=== PATIENT | male | born 1955 | race Caucasian/White ===

== ENCOUNTER 2023-11-20 01:45 | Emergency (ER) | payer MEDICARE ==
[~2023-11-20] VITALS: Ht 182.9 cm; Wt 136.1 kg
[~2023-11-20 01:45] MED LIST: CEFDINIR300 MG PO; CIPRO500 MG PO; DICYCLOMINE HCL20 MG PO; ONDANSETRON ODT4 MG PO; Z.0.LEVOTHROID50 MCG PO; Z.0.LIPITOR20 MG PO; Z.0.LISINOPRIL40 MG PO; Z.0.SIMVASTATIN20 MG PO; Z.0.ZIPSOR25 MG PO
[2023-11-20 01:55] VITALS: PULSE 73; RESP 20; TEMP 97.8; O2SAT 98
[2023-11-20] MEDS ORDERED: CEPHALEXIN500 MG PO (02:10)
[2023-11-20] MEDS ORDERED: ULTRAM 50MG50 MG PO (02:13)
[2023-11-20] MEDS: TETANUS/DIPHTHERIA TOX ADULT 0.5 ML SYR IM ONE (02:14)
== END 2023-11-20 02:21 | disposition home or self-care (01) ==
LOC: ER 01:50
DX: S81.811A Laceration without foreign body, right lower leg, initial encounter (principal); S90.414A Abrasion, right lesser toe(s), initial encounter; W20.8XXA Other cause of strike by thrown, projected or falling object, initial encounter; Y92.89 Other specified places as the place of occurrence of the external cause; I10 Essential (primary) hypertension; E03.9 Hypothyroidism, unspecified; I25.10 Atherosclerotic heart disease of native coronary artery without angina pectoris
CPT/HCPCS: 90471; 90714; 99284

== ENCOUNTER 2023-12-20 09:56 | Outpatient (RCR) | payer MEDICARE ==
[2023-11-30 16:55] LABS: BASOPHILS # (AUTO) 0.1 (0.0-0.1); EOSINOPHILS # (AUTO) 0.1 (0.0-0.4); EOSINOPHILS % 1.3 % (0.0-6.0); HEMATOCRIT 50.1 % (38.2-49.6); HEMOGLOBIN 16.5 g/dL (14.0-18.0); LYMPHOCYTES # (AUTO) 1.9 (1.0-3.2); LYMPHOCYTES % 18.7 % (18.0-39.1); MEAN CORPUSCULAR HGB CONC 32.9 g/dL (31-35); MEAN CORPUSCULAR VOLUME 103.1 fL (81-99); MONOCYTES # (AUTO) 0.9 (0.2-0.8); MONOCYTES % 9.4 % (4.4-11.3); NEUTROPHILS # (AUTO) 6.8 (2.1-6.9); NEUTROPHILS % 69.1 % (38.7-80.0); PLATELET COUNT 235 x10e3/uL (140-360); RED BLOOD COUNT 4.86 x10e6/uL (4.3-5.7); WHITE BLOOD COUNT 9.87 x10e3/uL (4.8-10.8)
[2023-11-30 17:10] LABS: ALBUMIN 3.6 g/dL (3.5-5.0); ALBUMIN/GLOBULIN RATIO 1.2 (0.8-2.0); ANION GAP 15.2 mmol/L (8-16); BILIRUBIN,TOTAL 0.7 mg/dL (0.2-1.2); CALCIUM 9.4 mg/dL (8.4-10.2); CREATININE, SERUM 1.13 mg/dL (0.72-1.25); POTASSIUM 4.2 mmol/L (3.5-5.1); TOTAL PROTEIN 6.5 g/dL (6.5-8.1)
[~2023-12-20 09:56] MED LIST changes: +CEPHALEXIN500 MG PO; +LIDOCAINE/PRILOCAINE 2.5-2.5% KIT ONE; +MINERAL OIL/PETROLAT/GLYCERI 6OZ BTL ONE; +ULTRAM 50MG50 MG PO
== END 2023-12-22 ==
LOC: WCC 09:56
PROVIDERS: ATTEND Nurse Practitioner Family
DX: S81.811D Laceration without foreign body, right lower leg, subsequent encounter (principal)
CPT/HCPCS: 36415; 80053; 84134; 85025

== ENCOUNTER 2023-12-27 11:59 | Inpatient (IN) | payer MEDICARE ==
[~2023-12-27] VITALS: Ht 182.9 cm; Wt 138.3 kg
[~2023-12-27 11:59] MED LIST changes: -LIDOCAINE/PRILOCAINE 2.5-2.5% KIT ONE; -MINERAL OIL/PETROLAT/GLYCERI 6OZ BTL ONE
[2023-12-27 13:08] VITALS: TEMP 98.4
[2023-12-27 13:59] LABS: BASOPHILS # (AUTO) 0.1 (0.0-0.1); BASOPHILS % 0.8 % (0.0-1.0); EOSINOPHILS % 0.1 % (0.0-6.0); LYMPHOCYTES # (AUTO) 0.6 (1.0-3.2); LYMPHOCYTES % 5.6 % (18.0-39.1); MEAN CORPUSCULAR HEMOGLOBIN 34.8 pg (28-32); MEAN CORPUSCULAR HGB CONC 33.3 g/dL (31-35); MEAN CORPUSCULAR VOLUME 104.5 fL (81-99); MONOCYTES # (AUTO) 0.6 (0.2-0.8); MONOCYTES % 5.8 % (4.4-11.3); NEUTROPHILS # (AUTO) 8.9 (2.1-6.9); PLATELET COUNT 126 x10e3/uL (140-360); RED BLOOD COUNT 4.88 x10e6/uL (4.3-5.7); RED CELL DISTRIBUTION WIDTH 12.5 % (11.7-14.4); WHITE BLOOD COUNT 10.26 x10e3/uL (4.8-10.8)
[2023-12-27 14:35] LABS: ALBUMIN 3.3 g/dL (3.5-5.0); ANION GAP 16.9 mmol/L (8-16); BILIRUBIN,TOTAL 1.3 mg/dL (0.2-1.2); CALCIUM 9.5 mg/dL (8.4-10.2); CREATININE, SERUM 1.45 mg/dL (0.72-1.25); POTASSIUM 4.9 mmol/L (3.5-5.1); TOTAL PROTEIN 6.7 g/dL (6.5-8.1)
[2023-12-27] MEDS ORDERED: SODIUM CHLORIDE FLUSH 10 ML SYR INJ PRN (16:45)
[2023-12-27] MEDS: Morphine 2mg Syringe 2 MG/ML SYR IV PRN (17:17)
[2023-12-27] MEDS: ONDANSETRON HCL INJ 2MG/ML 2ML 2 MG/ML VIAL IV PRN (17:17)
[2023-12-27 17:37] VITALS: PULSE 89; RESP 18
[2023-12-27 20:00] VITALS: BP 187/93; PULSE 96; RESP 20; TEMP 100.8; O2SAT 98
[2023-12-27] MEDS: HYDROCODONE/APAP 10MG-325MG TAB PO PRN (22:15)
[2023-12-27] MEDS: ACETAMINOPHEN 325 MG TAB PO PRN (22:16)
[2023-12-27] MEDS: SODIUM CHLORIDE 0.9% 1000ML 1,000 ML IV SCH (22:57)
[2023-12-28] VITALS (10 sets, daily range): BP systolic 120–187; BP diastolic 66–104; PULSE 89–109; RESP 20–22; TEMP 97.8–99.1; O2SAT 96–99
[2023-12-28 02:51] LABS: BILIRUBIN,URINE MODERATE (NEGATIVE); CLARITY,URINE CLEAR (CLEAR); COLOR,URINE YELLOW (YELLOW); GLUCOSE, URINE NEGATIVE (NEGATIVE); KETONES,URINE 2+ (NEGATIVE); LEUKOCYTE ESTERASE ,URINE NEGATIVE (NEGATIVE); NITRITE,URINE NEGATIVE (NEGATIVE); PH,URINE 5.5 (5 - 7); PROTEIN,URINE DIPSTICK 2+ (NEGATIVE); URINE UROBILINOGEN 0.2 mg/dL (0.2 - 1)
[2023-12-28 02:52] LABS: RBC,URINE 0-5 /HPF (0-5); WBC,URINE (MAN) 0-5 /HPF (0-5)
[2023-12-28 02:53] LABS: BACTERIA,URINE MANY /HPF; EPITHELIAL CELLS,URINE FEW /LPF
[2023-12-28] MEDS ORDERED: DICYCLOMINE HCL 20 MG TAB PO PRN (04:00)
[2023-12-28] MEDS: LEVOTHYROXINE SODIUM 50 MCG TAB PO SCH (05:30)
[2023-12-28] MEDS: LISINOPRIL 20 MG TAB PO SCH (05:31)
[2023-12-28] MEDS: SODIUM CHLORIDE 0.9% 500ML 500 ML IV ONE (05:41)
[2023-12-28] MEDS: HYDROMORPHONE 1MG/1ML INJ IV PRN (05:41)
[2023-12-28 05:43] LABS: BASOPHILS # (AUTO) 0.1 (0.0-0.1); BASOPHILS % 0.9 % (0.0-1.0); HEMATOCRIT 49.5 % (38.2-49.6); HEMOGLOBIN 16.6 g/dL (14.0-18.0); LYMPHOCYTES # (AUTO) 0.7 (1.0-3.2); LYMPHOCYTES % 5.5 % (18.0-39.1); MEAN CORPUSCULAR HEMOGLOBIN 34.4 pg (28-32); MEAN CORPUSCULAR HGB CONC 33.5 g/dL (31-35); MEAN CORPUSCULAR VOLUME 102.7 fL (81-99); MONOCYTES # (AUTO) 0.8 (0.2-0.8); MONOCYTES % 5.9 % (4.4-11.3); NEUTROPHILS # (AUTO) 11.2 (2.1-6.9); NEUTROPHILS % 86.9 % (38.7-80.0); PLATELET COUNT 143 x10e3/uL (140-360); RED BLOOD COUNT 4.82 x10e6/uL (4.3-5.7); RED CELL DISTRIBUTION WIDTH 12.5 % (11.7-14.4); WHITE BLOOD COUNT 12.88 x10e3/uL (4.8-10.8)
[2023-12-28] MEDS ORDERED: METOPROLOL TARTRATE INJ 1 MG/ML VIAL IV PRN (06:00)
[2023-12-28] MEDS ORDERED: HYDRALAZINE HCL 20 MG/ML VIAL IV PRN (06:15)
[2023-12-28] MEDS: ATORVASTATIN 20 MG TAB PO SCH (08:11)
[2023-12-28 08:15] LABS: ALBUMIN 2.7 g/dL (3.5-5.0); ALBUMIN/GLOBULIN RATIO 0.9 (0.8-2.0); ANION GAP 13.5 mmol/L (8-16); BILIRUBIN,TOTAL 0.9 mg/dL (0.2-1.2); CALCIUM 8.2 mg/dL (8.4-10.2); CREATININE, SERUM 1.6 mg/dL (0.72-1.25); POTASSIUM 4.5 mmol/L (3.5-5.1); TOTAL PROTEIN 5.6 g/dL (6.5-8.1)
[2023-12-28] MEDS ORDERED: LABETALOL HCL200 MG PO (09:04)
[2023-12-28] MEDS ORDERED: ARAVA20 MG PO (09:04)
[2023-12-28] MEDS ORDERED: MONTELUKAST SOD10 MG PO (09:04)
[2023-12-28] MEDS ORDERED: LOSARTAN POTAS100 MG PO (09:04)
[2023-12-28] MEDS ORDERED: HYDROXYCHLOROQ200 MG PO (09:04)
[2023-12-28] MEDS ORDERED: AMBIEN10 MG PO (09:04)
[2023-12-28] MEDS ORDERED: AMITRIPTYLINE H25 MG PO (09:04)
[2023-12-28] MEDS ORDERED: XARELTO20 MG PO (09:04)
[2023-12-28] MEDS ORDERED: LEVOTHYROXINE88 MCG PO (09:04)
[2023-12-28] MEDS: CLINDAMYCIN 600MG / 50ML 50 ML IV SCH (14:05)
[2023-12-28] MEDS: LABETALOL HCL 200 MG TAB PO SCH (21:45)
[2023-12-29] VITALS (8 sets, daily range): BP systolic 106–131; BP diastolic 60–89; PULSE 71–81; RESP 18–21; TEMP 97.7–98.5; O2SAT 96–98
[2023-12-29] MEDS: BISACODYL 5 MG TAB EC PO SCH (05:46)
[2023-12-29] MEDS: LOSARTAN POTASSIUM 100 MG TAB PO SCH (05:46)
[2023-12-29] MEDS: LEVOTHYROXINE SODIUM 88 MCG TAB PO SCH (05:46)
[2023-12-29 07:09] LABS: BASOPHILS % 0.4 % (0.0-1.0); EOSINOPHILS % 0.1 % (0.0-6.0); HEMATOCRIT 47.2 % (38.2-49.6); HEMOGLOBIN 15.5 g/dL (14.0-18.0); LYMPHOCYTES % 10.4 % (18.0-39.1); MEAN CORPUSCULAR HGB CONC 32.8 g/dL (31-35); MEAN CORPUSCULAR VOLUME 103.5 fL (81-99); MONOCYTES # (AUTO) 0.7 (0.2-0.8); MONOCYTES % 7.7 % (4.4-11.3); NEUTROPHILS # (AUTO) 7.8 (2.1-6.9); PLATELET COUNT 158 x10e3/uL (140-360); RED BLOOD COUNT 4.56 x10e6/uL (4.3-5.7); RED CELL DISTRIBUTION WIDTH 12.9 % (11.7-14.4); WHITE BLOOD COUNT 9.59 x10e3/uL (4.8-10.8)
[2023-12-29 07:49] LABS: ALBUMIN 2.5 g/dL (3.5-5.0); ALBUMIN/GLOBULIN RATIO 0.7 (0.8-2.0); ANION GAP 15.2 mmol/L (8-16); BILIRUBIN,TOTAL 0.8 mg/dL (0.2-1.2); CALCIUM 8.4 mg/dL (8.4-10.2); CREATININE, SERUM 2.77 mg/dL (0.72-1.25); POTASSIUM 4.2 mmol/L (3.5-5.1)
[2023-12-29] MEDS: SODIUM CHLORIDE 0.9% 1000ML 500 ML IV ONE (11:19)
[2023-12-29] MEDS ORDERED: BISACODYL 5 MG TAB EC PO PRN (13:00)
[2023-12-29 18:42] LABS: CREATININE,URINE RANDOM 238.52 mg/dL (63-166); TOTAL PROTEIN, URINE 49.3 mg/dL (1-14)
[2023-12-30] VITALS (8 sets, daily range): BP systolic 125–171; BP diastolic 83–99; PULSE 71–109; RESP 18–25; TEMP 97.5–98.2; O2SAT 96–99
[2023-12-30 05:25] LABS: BASOPHILS % 0.5 % (0.0-1.0); EOSINOPHILS # (AUTO) 0.1 (0.0-0.4); EOSINOPHILS % 0.8 % (0.0-6.0); HEMATOCRIT 43.4 % (38.2-49.6); HEMOGLOBIN 14.6 g/dL (14.0-18.0); LYMPHOCYTES # (AUTO) 0.8 (1.0-3.2); LYMPHOCYTES % 10.3 % (18.0-39.1); MEAN CORPUSCULAR HEMOGLOBIN 34.1 pg (28-32); MEAN CORPUSCULAR HGB CONC 33.6 g/dL (31-35); MEAN CORPUSCULAR VOLUME 101.4 fL (81-99); MONOCYTES # (AUTO) 0.7 (0.2-0.8); MONOCYTES % 9.9 % (4.4-11.3); NEUTROPHILS # (AUTO) 5.7 (2.1-6.9); NEUTROPHILS % 78.2 % (38.7-80.0); PLATELET COUNT 155 x10e3/uL (140-360); RED BLOOD COUNT 4.28 x10e6/uL (4.3-5.7); RED CELL DISTRIBUTION WIDTH 12.7 % (11.7-14.4)
[2023-12-30 06:06] LABS: ALBUMIN 2.3 g/dL (3.5-5.0); ALBUMIN/GLOBULIN RATIO 0.7 (0.8-2.0); ANION GAP 15.8 mmol/L (8-16); BILIRUBIN,TOTAL 0.5 mg/dL (0.2-1.2); CALCIUM 8.4 mg/dL (8.4-10.2); CREATININE, SERUM 1.94 mg/dL (0.72-1.25); POTASSIUM 3.8 mmol/L (3.5-5.1); TOTAL PROTEIN 5.8 g/dL (6.5-8.1)
[2023-12-30] MEDS: SODIUM BICARBONATE 650 MG TAB PO SCH (09:38)
[2023-12-31] VITALS (7 sets, daily range): BP systolic 121–176; BP diastolic 70–93; PULSE 87–99; RESP 18–19; TEMP 97.6–97.8; O2SAT 97–99
[2023-12-31 06:36] LABS: ANION GAP 13.6 mmol/L (8-16); CALCIUM 8.7 mg/dL (8.4-10.2); CREATININE, SERUM 1.24 mg/dL (0.72-1.25); MAGNESIUM 2.1 MG/DL (1.3-2.1); PHOSPHORUS 2.4 MG/DL (2.3-4.7); POTASSIUM 3.6 mmol/L (3.5-5.1)
[2023-12-31] MEDS: RIVAROXABAN 20 MG TABLET PO SCH (12:00)
[2023-12-31] MEDS: HYDROXYCHLOROQUINE SULFATE 200 MG TAB PO SCH (12:00)
[2023-12-31] MEDS: AMITRIPTYLINE HCL 25 MG TAB PO SCH (21:32)
[2024-01-01] VITALS (7 sets, daily range): BP systolic 132–169; BP diastolic 75–100; PULSE 88–102; RESP 17–19; TEMP 97.6–98.4; O2SAT 94–98
[2024-01-01] MEDS: MONTELUKAST SODIUM 10 MG TAB PO SCH (06:40)
[2024-01-02] VITALS (7 sets, daily range): BP systolic 107–135; BP diastolic 69–84; PULSE 88–96; RESP 18–23; TEMP 97–98.7; O2SAT 97–100
[2024-01-02 05:36] LABS: BASOPHILS # (AUTO) 0.1 (0.0-0.1); BASOPHILS % 0.8 % (0.0-1.0); EOSINOPHILS # (AUTO) 0.1 (0.0-0.4); EOSINOPHILS % 1.4 % (0.0-6.0); HEMATOCRIT 38.3 % (38.2-49.6); HEMOGLOBIN 13.2 g/dL (14.0-18.0); LYMPHOCYTES # (AUTO) 1.3 (1.0-3.2); LYMPHOCYTES % 13.7 % (18.0-39.1); MEAN CORPUSCULAR HEMOGLOBIN 34.2 pg (28-32); MEAN CORPUSCULAR HGB CONC 34.5 g/dL (31-35); MEAN CORPUSCULAR VOLUME 99.2 fL (81-99); MONOCYTES % 10.5 % (4.4-11.3); NEUTROPHILS # (AUTO) 6.7 (2.1-6.9); NEUTROPHILS % 72.2 % (38.7-80.0); PLATELET COUNT 240 x10e3/uL (140-360); RED BLOOD COUNT 3.86 x10e6/uL (4.3-5.7); RED CELL DISTRIBUTION WIDTH 12.8 % (11.7-14.4); WHITE BLOOD COUNT 9.32 x10e3/uL (4.8-10.8)
[2024-01-02 05:57] LABS: ALBUMIN/GLOBULIN RATIO 0.5 (0.8-2.0); ANION GAP 14.4 mmol/L (8-16); BILIRUBIN,TOTAL 0.9 mg/dL (0.2-1.2); CALCIUM 8.8 mg/dL (8.4-10.2); CREATININE, SERUM 1.01 mg/dL (0.72-1.25); TOTAL PROTEIN 5.7 g/dL (6.5-8.1)
[2024-01-02 05:59] LABS: POTASSIUM 3.4 mmol/L (3.5-5.1)
[2024-01-03] VITALS (8 sets, daily range): BP systolic 122–153; BP diastolic 79–87; PULSE 76–89; RESP 18–21; TEMP 97.1–98; O2SAT 97–99
[2024-01-03] MEDS ORDERED: Vancomycin IV 1 GM in SODIUM CHLORIDE 0.9% 250ML 250 ML IV SCH (03:30)
[2024-01-03] MEDS ORDERED: Vancomycin IV 1 GM in SODIUM CHLORIDE 0.9% 250ML 250 ML IV ONE (04:45)
[2024-01-03] MEDS: Vancomycin IV 2 GM in SODIUM CHLORIDE 0.9% 500ML 500 ML IV SCH (05:05)
[2024-01-03 05:15] LABS: BASOPHILS # (AUTO) 0.1 (0.0-0.1); BASOPHILS % 0.6 % (0.0-1.0); EOSINOPHILS # (AUTO) 0.2 (0.0-0.4); EOSINOPHILS % 2.2 % (0.0-6.0); HEMATOCRIT 39.9 % (38.2-49.6); HEMOGLOBIN 12.9 g/dL (14.0-18.0); LYMPHOCYTES # (AUTO) 1.3 (1.0-3.2); LYMPHOCYTES % 16.4 % (18.0-39.1); MEAN CORPUSCULAR HEMOGLOBIN 33.5 pg (28-32); MEAN CORPUSCULAR HGB CONC 32.3 g/dL (31-35); MEAN CORPUSCULAR VOLUME 103.6 fL (81-99); MONOCYTES # (AUTO) 0.8 (0.2-0.8); MONOCYTES % 10.7 % (4.4-11.3); NEUTROPHILS # (AUTO) 5.3 (2.1-6.9); PLATELET COUNT 283 x10e3/uL (140-360); RED BLOOD COUNT 3.85 x10e6/uL (4.3-5.7); RED CELL DISTRIBUTION WIDTH 12.8 % (11.7-14.4); WHITE BLOOD COUNT 7.79 x10e3/uL (4.8-10.8)
[2024-01-03 05:49] LABS: ALBUMIN 1.9 g/dL (3.5-5.0); ALBUMIN/GLOBULIN RATIO 0.5 (0.8-2.0); ANION GAP 14.3 mmol/L (8-16); BILIRUBIN,TOTAL 0.9 mg/dL (0.2-1.2); CALCIUM 9.2 mg/dL (8.4-10.2); CREATININE, SERUM 1.12 mg/dL (0.72-1.25); TOTAL PROTEIN 5.7 g/dL (6.5-8.1)
[2024-01-03 05:52] LABS: POTASSIUM 3.3 mmol/L (3.5-5.1)
[2024-01-03 06:15] LABS: PHOSPHORUS 2.8 MG/DL (2.3-4.7)
[2024-01-03] MEDS: VANCOMYCIN 2 GRAM/400 ML (PEG) 400 ML IV SCH (16:11)
[2024-01-03] MEDS: COLLAGENASE 5 GM TUBE TOP SCH (16:12)
[2024-01-03] MEDS: HYDROMORPHONE 1MG/1ML INJ IV PRN (22:25)
[2024-01-04] VITALS (8 sets, daily range): BP systolic 114–156; BP diastolic 72–94; PULSE 85–95; RESP 17–20; TEMP 97.7–98.6; O2SAT 96–100
[2024-01-05] VITALS (8 sets, daily range): BP systolic 128–163; BP diastolic 79–95; PULSE 74–95; RESP 16–20; TEMP 97.5–98; O2SAT 98–100
[2024-01-05 05:09] LABS: BASOPHILS # (AUTO) 0.1 (0.0-0.1); BASOPHILS % 0.8 % (0.0-1.0); EOSINOPHILS # (AUTO) 0.2 (0.0-0.4); EOSINOPHILS % 2.3 % (0.0-6.0); HEMATOCRIT 39.2 % (38.2-49.6); HEMOGLOBIN 12.8 g/dL (14.0-18.0); LYMPHOCYTES # (AUTO) 1.5 (1.0-3.2); LYMPHOCYTES % 17.3 % (18.0-39.1); MEAN CORPUSCULAR HEMOGLOBIN 33.8 pg (28-32); MEAN CORPUSCULAR HGB CONC 32.7 g/dL (31-35); MEAN CORPUSCULAR VOLUME 103.4 fL (81-99); MONOCYTES # (AUTO) 0.9 (0.2-0.8); MONOCYTES % 10.5 % (4.4-11.3); NEUTROPHILS # (AUTO) 5.7 (2.1-6.9); NEUTROPHILS % 67.4 % (38.7-80.0); PLATELET COUNT 402 x10e3/uL (140-360); RED BLOOD COUNT 3.79 x10e6/uL (4.3-5.7); RED CELL DISTRIBUTION WIDTH 12.9 % (11.7-14.4)
[2024-01-05 05:11] LABS: ALBUMIN 2.1 g/dL (3.5-5.0); ALBUMIN/GLOBULIN RATIO 0.6 (0.8-2.0); ANION GAP 16.4 mmol/L (8-16); BILIRUBIN,TOTAL 1.1 mg/dL (0.2-1.2); CALCIUM 8.9 mg/dL (8.4-10.2); CREATININE, SERUM 1.2 mg/dL (0.72-1.25); TOTAL PROTEIN 5.9 g/dL (6.5-8.1)
[2024-01-05 05:36] LABS: POTASSIUM 3.4 mmol/L (3.5-5.1)
[2024-01-05] MEDS: POTASSIUM CHLORIDE 20 MEQ TAB CR PO STA (11:51)
[2024-01-05] MEDS: INSULIN GLARGINE 100 UNITS/ML VIAL ONE (13:39)
[2024-01-06] VITALS: BP 141/94; PULSE 93; RESP 20; TEMP 97.3; O2SAT 98
[2024-01-06 05:27] VITALS: BP 129/88; PULSE 86; RESP 20; TEMP 97.3; O2SAT 98
[2024-01-06 08:07] VITALS: BP 159/87; PULSE 99; RESP 20; TEMP 98.2; O2SAT 98
[2024-01-06] MEDS: POTASSIUM CHLORIDE 20MEQ/100ML 200 ML IV ONE (11:07)
[2024-01-06 11:16] VITALS: BP 159/87; PULSE 99; RESP 20; TEMP 98.2; O2SAT 98
[2024-01-06 11:24] VITALS: BP 134/71; PULSE 87; RESP 18; TEMP 98.1; O2SAT 100
[2024-01-06] MEDS: VANCOMYCIN 2 GRAM/400 ML (PEG) 400 ML IV SCH (14:52)
[2024-01-06 15:50] VITALS: BP 147/96; PULSE 71; RESP 20; TEMP 97.7; O2SAT 99
[2024-01-06] MEDS ORDERED: ZYVOX600 MG PO (16:55)
== END 2024-01-06 18:54 | disposition home or self-care (01) | DRG 872 ==
LOC: ER 13:15 → ERHOLD 16:36 → MED/SURG 18:33 → OBSVTOIN 12-29 08:28
PROVIDERS: ADMIT Internal Medicine; ATTEND Internal Medicine
PROC: 3E0333Z Introduction of Anti-inflammatory into Peripheral Vein, Percutaneous Approach (ICD-10-PCS; principal; 2023-12-27)
DX: A41.9 Sepsis, unspecified organism (principal); L03.115 Cellulitis of right lower limb; L03.116 Cellulitis of left lower limb; N17.9 Acute kidney failure, unspecified; G93.40 Encephalopathy, unspecified; E87.1 Hypo-osmolality and hyponatremia; E87.20 Acidosis, unspecified; M62.82 Rhabdomyolysis; Z68.41 Body mass index [BMI] 40.0-44.9, adult; E83.41 Hypermagnesemia; E88.09 Other disorders of plasma-protein metabolism, not elsewhere classified; D69.6 Thrombocytopenia, unspecified; Z99.81 Dependence on supplemental oxygen; N18.31 Chronic kidney disease, stage 3a; I12.9 Hypertensive chronic kidney disease with stage 1 through stage 4 chronic kidney disease, or unspecified chronic kidney disease; M32.9 Systemic lupus erythematosus, unspecified; E03.9 Hypothyroidism, unspecified; I25.10 Atherosclerotic heart disease of native coronary artery without angina pectoris; G47.33 Obstructive sleep apnea (adult) (pediatric); I73.9 Peripheral vascular disease, unspecified; E66.01 Morbid (severe) obesity due to excess calories; R53.1 Weakness; Z79.890 Hormone replacement therapy; Z79.01 Long term (current) use of anticoagulants; Z86.718 Personal history of other venous thrombosis and embolism
CPT/HCPCS: 36415; 76700; 76770; 80048; 80053; 80202; 81001; 81015; 82550; 82570; 82948; 83036; 83605; 83735; 83880; 84100; 84156; 85025; 87040; 87086; 93005; 93306; 93970; 99252; 99284; G0378; J0696; J1171; J1815; J2270; J2405; J2543; J3480; J7030; J7040